=== PATIENT | female | born 1950 | race American Indian/Alaskan Native ===

== ENCOUNTER 2022-06-24 16:15 | Emergency (ER) | payer MEDICARE ==
--- NOTE | 2022-06-25 11:31 | Emergency Department Report ---
Chief Complaint: Dyspnea/Respdistress Stated Complaint: RICO - HPI History of Present Illness: Patient comes in for cough with chest pain and low oxygen started yesterday. Cough since Wednesday. Had dizziness and SOB and sweats. admits to head ache and chest pain and abdominal pain from coughing so much. - Exam Vital Signs: Vital Signs 06/24/22 06/25/22 06/25/22 16:55 03:04 11:19 Temperature 97.3 F L Pulse Rate 92 H 102 H 111 H Respiratory 14 20 20 Rate Blood Pressure 134/89 184/95 165/93 [Left] O2 Sat by Pulse 97 94 98 Oximetry Physical Exam: AxO times 3. NAD has oxygen via nasal cannula. No respiratory distress pulse normal. Ox stats improved with supplemental oxygen. ambulates with a walker. MSE screening note: Focused history and physical exam performed. Due to findings the following was ordered: CXR, EKG ED Disposition for MSE Condition: Stable
--- NOTE | 2022-06-25 12:28 | XRay Report ---
CHEST 2 VIEWS INDICATION / CLINICAL INFORMATION: sob,cough and rales. COMPARISON: None available. FINDINGS: SUPPORT DEVICES: None. HEART / MEDIASTINUM: Upper limits normal in size. LUNGS / PLEURA: Mild pulmonary vascular congestion without consolidation or pleural effusion. No pneu mothorax. ADDITIONAL FINDINGS: No significant additional findings. IMPRESSION: 1. Mild pulmonary vascular congestion without consolidation or pleural effusion. Signer Name: Ramirez Ponce MD Signed: 06/25/2022 12:24 PM Workstation Name: [id number]
[2022-06-25 12:55] LABS: Alanine Aminotransferase 17 units/L (7-56); Albumin 4.3 g/dL (3.9-5); Blood Urea Nitrogen 12 mg/dL (7-17); Hemolysis Index 10
[2022-06-25 12:58] LABS: Hematocrit 40.5 % (30.3-42.9); Hemoglobin 12.7 gm/dl (10.1-14.3); Mean Corpuscular HGB Conc 31 % (30-34); Mean Corpuscular Volume 76 fl (79-97); Red Blood Count 5.33 M/mm3 (3.65-5.03); Red Cell Distribution Width 17.7 % (13.2-15.2)
[2022-06-25 12:59] LABS: BUN/Creatinine Ratio 20
[2022-06-25 13:00] LABS: Platelet Count 222 K/mm3 (140-440)
[2022-06-25 13:32] LABS: Anisocytosis 1+; Basophils % (Manual) 0 % (0.0-1.8); Hypochromasia 1+; Large Platelets Few; Platelet Estimate Consistent w Auto; Smudge Cells Few; Total Cells Counted 100
[2022-06-26] MEDS ORDERED: ALBUTEROL 2.5 MG/3 ML NEBU IH ONE (00:09)
[2022-06-26] MEDS ORDERED: ACETAMINOPHEN 500 MG TAB PO ONE (00:09)
[2022-06-26] MEDS ORDERED: IPRATROPIUM 0.02% NEBU 2.5 ML IH ONE (00:09)
[2022-06-26] MEDS ORDERED: dexAMETHasone 20 MG/5 ML VIAL IV ONE (00:09)
[2022-06-26 00:52] LABS: INR 0.99 (0.87-1.13); Partial Thromboplastin Time 25.8 Sec. (24.2-36.6)
--- NOTE | 2022-06-26 02:22 | Emergency Department Report ---
ED General Adult HPI - General Chief complaint: Dyspnea/Respdistress Stated complaint: RICO Source: patient, EMS Mode of arrival: Stretcher Limitations: No Limitations - History of Present Illness Initial comments: Patient 72-year-old -[place] female with history of COPD, hypertension, diabetes, hyperlipidemia who presents withcough cough and shortness of breath x3 days. Patient states COPD exacerbation. Rates symptoms at 5/10. Patient states and needs steroids. No fevers no chills no nausea vomiting. No lightheadedness or dizziness. Patient advises this is normal flare for COPD symptoms. Patient does have good primary care follow-up Dr. Earl who she will see tomorrow. Patient is alert oriented x3. Patient is ambulatory states mild wheezing at this time. Symptoms are exacerbated by activity and primarily exposure. Symptoms are relieved by albuterol temporarily. Severity scale (0 -10): 7 - Related Data Previous Rx's Medication Instructions Recorded Last Taken Type Albuterol Mdi (or & Nicu Only) 2 puff IH QID PRN #8.5 gram 06/26/22 Unknown Rx [ProAir HFA Inhaler] Azithromycin 500 mg PO DAILY #5 tab 06/26/22 Unknown Rx Budesonide/Formoterol Fumarate 2 puff IH BID 1 Days #1 each 06/26/22 Unknown Rx [Symbicort 160-4.5 Mcg Inhaler] guaiFENesin/CODEINE [Robitussin AC] 5 ml PO Q6H PRN #115 ml 06/26/22 Unknown Rx predniSONE [Deltasone] 40 mg PO QDAY 5 Days #10 tab 06/26/22 Unknown Rx Allergies Allergy/AdvReac Type Severity Reaction Status Date / Time Iodine and Iodide Containing AdvReac Unknown Verified 06/24/22 16:58 Produc ED Review of Systems ROS: Stated complaint: RICO Other details as noted in HPI Constitutional: denies: chills, fever Eyes: denies: eye pain, eye discharge, vision change ENT: denies: ear pain, throat pain Respiratory: cough, shortness of breath, wheezing Cardiovascular: denies: chest pain, palpitations Endocrine: no symptoms reported Gastrointestinal: denies: abdominal pain, nausea, vomiting, diarrhea Genitourinary: denies: urgency, dysuria, discharge Musculoskeletal: denies: back pain, joint swelling, arthralgia Skin: denies: rash, lesions Neurological: headache (States headache with cough). denies: weakness, numbness, paresthesias, confusion, vertigo Psychiatric: denies: anxiety, depression Hematological/Lymphatic: denies: easy bleeding, easy bruising ED Past Medical Hx - Medications Home Medications: Home Medications Medication Instructions Recorded Confirmed Last Taken Type Albuterol Mdi (or & Nicu Only) 2 puff IH QID PRN #8.5 gram 06/26/22 Unknown Rx [ProAir HFA Inhaler] Azithromycin 500 mg PO DAILY #5 tab 06/26/22 Unknown Rx Budesonide/Formoterol Fumarate 2 puff IH BID 1 Days #1 each 06/26/22 Unknown Rx [Symbicort 160-4.5 Mcg Inhaler] guaiFENesin/CODEINE [Robitussin AC] 5 ml PO Q6H PRN #115 ml 06/26/22 Unknown Rx predniSONE [Deltasone] 40 mg PO QDAY 5 Days #10 tab 06/26/22 Unknown Rx ED Physical Exam - General Limitations: No Limitations General appearance: alert, in no apparent distress - Head Head exam: Present: normocephalic, normal inspection - Eye Eye exam: Present: PERRL, EOMI Pupils: Present: normal accommodation - ENT ENT exam: Present: normal orophraynx, mucous membranes moist - Neck Neck exam: Present: normal inspection, full ROM. Absent: tenderness, meningismus, lymphadenopathy, thyromegaly - Respiratory Respiratory exam: Present: normal lung sounds bilaterally, wheezes. Absent: respiratory distress, stridor, chest wall tenderness, prolonged expiratory - Cardiovascular Cardiovascular Exam: Present: regular rate, normal rhythm, normal heart sounds. Absent: systolic murmur, diastolic murmur, rubs, gallop - GI/Abdominal GI/Abdominal exam: Present: soft, normal bowel sounds. Absent: distended, tenderness - Rectal Rectal exam: Present: deferred - Extremities Exam Extremities exam: Present: normal inspection, full ROM, normal capillary refill. Absent: tenderness, pedal edema - Back Exam Back exam: Present: normal inspection, full ROM. Absent: CVA tenderness (R), CVA tenderness (L), vertebral tenderness - Neurological Exam Neurological exam: Present: alert, oriented X3, CN II-XII intact, normal gait, reflexes normal. Absent: motor sensory deficit - Expanded Neurological Exam Expanded Patient oriented to: Present: person, place, time Speech: Present: fluid speech Motor strength exam: RUE: 5, LUE: 5, RLE: 5, LLE: 5 Best Eye Response ([place]): (4) open spontaneously Best Motor Response ([place]): (6) obeys commands Best Verbal Response ([place]): (5) oriented [place] Total: 15 - Psychiatric Psychiatric exam: Present: normal affect, normal mood - Skin Skin exam: Present: warm, dry, intact, normal color. Absent: rash ED Course Vital Signs 06/24/22 06/25/22 06/25/22 16:55 03:04 11:19 Temperature 97.3 F L Pulse Rate 92 H 102 H 111 H Respiratory 14 20 20 Rate Blood Pressure 134/89 184/95 165/93 [Left] O2 Sat by Pulse 97 94 98 Oximetry ED Medical Decision Making - Lab Data Result diagrams: 06/25/22 11:43 06/25/22 11:43 Labs 06/25/22 06/25/22 06/26/22 11:43 11:43 00:27 WBC 9.1 RBC 5.33 H Hgb 12.7 Hct 40.5 MCV 76 L MCH 24 L MCHC 31 RDW 17.7 H Plt Count 222 Add Manual Diff Complete Total Counted 100 Seg Neuts % (Manual) 68.0 Band Neutrophils % 0 Lymphocytes % (Manual) 15.0 Reactive Lymphs % (Man) 0 Monocytes % (Manual) 15.0 H Eosinophils % (Manual) 2.0 Basophils % (Manual) 0 Metamyelocytes % 0 Myelocytes % 0 Promyelocytes % 0 Blast Cells % 0 Nucleated RBC % Not Reportable Seg Neutrophils # Man 6.2 Band Neutrophils # 0.0 Lymphocytes # (Manual) 1.4 Abs React Lymphs (Man) 0.0 Monocytes # (Manual) 1.4 H Eosinophils # (Manual) 0.2 Basophils # (Manual) 0.0 Metamyelocytes # 0.0 Myelocytes # 0.0 Promyelocytes # 0.0 Blast Cells # 0.0 WBC Morphology Not Reportable Hypersegmented Neuts Not Reportable Hyposegmented Neuts Not Reportable Hypogranular Neuts Not Reportable Smudge Cells Few Toxic Granulation Not Reportable Toxic Vacuolation Not Reportable Dohle Bodies Not Reportable Pelger-Huet Anomaly Not Reportable Lori Rods Not Reportable Platelet Estimate Consistent w auto Clumped Platelets Not Reportable Plt Clumps, EDTA Not Reportable Large Platelets Few Giant Platelets Not Reportable Platelet Satelliting Not Reportable Plt Morphology Comment Not Reportable RBC Morphology Not Reportable Dimorphic RBCs Not Reportable Polychromasia Not Reportable Hypochromasia 1+ Poikilocytosis Not Reportable Anisocytosis 1+ Microcytosis Not Reportable Macrocytosis Not Reportable Spherocytes Not Reportable Pappenheimer Bodies Not Reportable Sickle Cells Not Reportable Target Cells Not Reportable Tear Drop Cells Not Reportable Ovalocytes Not Reportable Helmet Cells Not Reportable [place] Bodies Not Reportable [place] Rings Not Reportable Ora Cells Not Reportable Bite Cells Not Reportable Crenated Cell Not Reportable Elliptocytes Not Reportable Acanthocytes (Spur) Not Reportable Rouleaux Not Reportable Hemoglobin C Crystals Not Reportable Schistocytes Not Reportable Malaria parasites Not Reportable Aleksander Bodies Not Reportable Hem Pathologist Commnt No PT 14.2 INR 0.99 APTT 25.8 Sodium 137 Potassium 4.4 Chloride 96.0 L Carbon Dioxide 28 Anion Gap 17 BUN 12 Creatinine 0.6 Estimated GFR > 60 BUN/Creatinine Ratio 20 Glucose 231 H Calcium 10.0 Total Bilirubin 0.40 AST 15 ALT 17 Alkaline Phosphatase 102 Troponin T Total Protein 7.0 Albumin 4.3 Albumin/Globulin Ratio 1.6 06/26/22 00:27 WBC RBC Hgb Hct MCV MCH MCHC RDW Plt Count Add Manual Diff Total Counted Seg Neuts % (Manual) Band Neutrophils % Lymphocytes % (Manual) Reactive Lymphs % (Man) Monocytes % (Manual) Eosinophils % (Manual) Basophils % (Manual) Metamyelocytes % Myelocytes % Promyelocytes % Blast Cells % Nucleated RBC % Seg Neutrophils # Man Band Neutrophils # Lymphocytes # (Manual) Abs React Lymphs (Man) Monocytes # (Manual) Eosinophils # (Manual) Basophils # (Manual) Metamyelocytes # Myelocytes # Promyelocytes # Blast Cells # WBC Morphology Hypersegmented Neuts Hyposegmented Neuts Hypogranular Neuts Smudge Cells Toxic Granulation Toxic Vacuolation Dohle Bodies Pelger-Huet Anomaly Lori Rods Platelet Estimate Clumped Platelets Plt Clumps, EDTA Large Platelets Giant Platelets Platelet Satelliting Plt Morphology Comment RBC Morphology Dimorphic RBCs Polychromasia Hypochromasia Poikilocytosis Anisocytosis Microcytosis Macrocytosis Spherocytes Pappenheimer Bodies Sickle Cells Target Cells Tear Drop Cells Ovalocytes Helmet Cells [place] Bodies [place] Rings Round Top Cells Bite Cells Crenated Cell Elliptocytes Acanthocytes ([place]) Rouleaux Hemoglobin C Crystals Schistocytes Malaria parasites Ale[place]ander Bodies Hem Pathologist Commnt PT INR APTT Sodium Potassium Chloride Carbon Dioxide Anion Gap BUN Creatinine Estimated GFR BUN/Creatinine Ratio Glucose Calcium Total Bilirubin AST ALT Alkaline Phosphatase Troponin T < 0.010 Total Protein Albumin Albumin/Globulin Ratio - EKG Data EKG shows normal: sinus rhythm - EKG Data When compared to previous EKG there are: previous EKG unavailable Interpretation: normal EKG (Sinus rhythm with left ventricular hypertrophy ST elevated [place] interpreted by ED attending.) - Radiology Data Radiology results: report reviewed, image reviewed CHEST 2 VIEWS INDICATION / CLINICAL INFORMATION: sob,cough and rales. COMPARISON: None available. FINDINGS: SUPPORT DEVICES: None. HEART / MEDIASTINUM: Upper limits normal in size. LUNGS / PLEURA: Mild pulmonary vascular congestion without consolidation or pleural effusion. No pneumothorax. ADDITIONAL FINDINGS: No significant additional findings. IMPRESSION: 1. Mild pulmonary vascular congestion without consolidation or pleural effusion. Signer Name: Enid Macdonald MD Signed: 06/25/2022 12:24 PM Workstation Name: [id number] Transcribed By: JW Dictated By: ENID MACDONALD MD Electronically Authenticated By: ENID MACDONALD MD Signed Date/Time: 06/25/221223 DD/ 22 TD/TT: - Medical Decision Making Patient advises symptoms are resolved with medications given in ED. Speech is clear patient is speaking in full sentence. Pt advises ready for discharge to home. Patient has ambulated from room to bathroom and returned to room without increased shortness of breath or wheezing. Plan DC to home with prescriptions. Follow-up with Dr. Earl tomorrow as scheduled. Return to emergency departm ent should symptoms worsen. Patient verbalizes agreement and understanding with discharge plan. Patient DC'd home in stable condition at this time. Critical care attestation.: If time is entered above; I have spent that time in minutes in the direct care of this critically ill patient, excluding procedure time. ED Disposition Clinical Impression: COPD (chronic obstructive pulmonary disease) Qualifiers: COPD type: COPD with acute exacerbation Qualified Code(s): J44.1 - Chronic obstructive pulmonary disease with (acute) exacerbation Disposition: 01 HOME / SELF CARE / HOMELESS Is pt being admited?: No Does the pt Need Aspirin: No Condition: Stable Instructions: Chronic Obstructive Pulmonary Disease (ED), Chronic Obstructive Pulmonary Disease Exacerbation, [id number] Additional Instructions: Take medications as prescribed, follow-up with your doctor in 2 to 3 days. Return to emergency department should symptoms worsen. Prescriptions: Azithromycin 500 mg PO DAILY #5 tab predniSONE [Deltasone] 40 mg PO QDAY 5 Days #10 tab Albuterol Mdi (or & Nicu Only) [ProAir HFA Inhaler] 2 puff IH QID PRN #8.5 gram PRN Reason: Shortness Of Breath guaiFENesin/CODEINE [Robitussin AC] 5 ml PO Q6H PRN #115 ml PRN Reason: Cough Budesonide/Formoterol Fumarate [Symbicort 160-4.5 Mcg Inhaler] 2 puff IH BID 1 Days #1 each Referrals: SAM WHITLOCK MD [Staff Physician] - 3-5 Days Forms: Work/School Release Form(ED) Time of Disposition: 02:42
[2022-06-26 02:55] VITALS: BP 117/77
--- NOTE | 2022-06-26 13:20 | Electrocardiograph Report ---
[facility] Test Date: 2022-06-25 Test Time: 11:37:06 Pat Name: ML IBARRA Department: Room: Gender: F Dietitian Consultant: AF : 1950 Requested By: BILL KUMAR Order Number: [id number] Reading MD: Fiordaliza Rodriguez Measurements Intervals [place] Rate: 110 P: 42 [place]: 160 QRS: 5 QRSD: 87 T: 98 QT: 337 QTc: 457 Interpretive Statements Sinus tachycardia LVH with secondary repolarization abnormality No previous ECG available for comparison Electronically Signed On 06-26-2022 13:20:16 EDT by Fiordaliza Rodriguez
== END 2022-06-26 03:24 | disposition home or self-care (01) ==
LOC: ED 16:15
DX: J44.9 Chronic obstructive pulmonary disease, unspecified (principal); Z91.041 Radiographic dye allergy status; Z79.899 Other long term (current) drug therapy
CPT/HCPCS: 36415; 71046; 80053; 84484; 85007; 85025; 85610; 85730; 93005; 94640; 96374; 99284; J1100